=== PATIENT | female | born 1980 | race African-American/Black ===

== ENCOUNTER 2017-01-31 11:08 | Emergency (ER) | payer OTHER ==
[~2017-01-31] VITALS: Ht 170.2 cm; Wt 54.0 kg
[2017-01-31] MEDS ORDERED: ONDANSETRON 4MG ODT PO ONE (12:30)
[2017-01-31] MEDS ORDERED: HYDROCODONE/ACETAMINOPHEN 5/325MG TABLET PO ONE (12:30)
[2017-01-31] MEDS ORDERED: TETANUS, DIPHTHERIA, PERTUSSIS VAC/PF 0.5ML (>7YR OLD) IM ONE (13:45)
[2017-01-31] MEDS ORDERED: BACITRACIN ZINC OINT UDPKT TOP ONE (14:00)
[2017-01-31 15:05] VITALS: BP 137/84
== END 2017-01-31 16:12 | disposition home or self-care (01) ==
LOC: ER 11:51
DX: S01.01XA Laceration without foreign body of scalp, initial encounter (principal); S81.811A Laceration without foreign body, right lower leg, initial encounter; S60.512A Abrasion of left hand, initial encounter; M54.5 Low back pain; G40.909 Epilepsy, unspecified, not intractable, without status epilepticus; F17.210 Nicotine dependence, cigarettes, uncomplicated; Y00.XXXA Assault by blunt object, initial encounter; Y92.89 Other specified places as the place of occurrence of the external cause
CPT/HCPCS: 12001; 70450; 72100; 73110; 73130; 73590; 90471; 90715; 99284; Q0162; X7700; Z7610